=== PATIENT | female | born 1935 | race Caucasian/White ===

== ENCOUNTER 2017-04-22 13:29 | Emergency (ER) | payer MEDICARE, OTHER ==
[~2017-04-22] VITALS: Ht 154.3 cm; Wt 80.5 kg
[2017-04-22 14:00] VITALS: BP 157/86; PULSE 74; RESP 16; O2SAT 96
[2017-04-22 15:05] VITALS: BP 147/59; PULSE 70; RESP 23; O2SAT 100
--- NOTE | 2017-04-22 15:05 | ED.REPORT ---
HPI-General Illness Date of Service Apr 22, 2017 ED Provider: Dejan Whitlock MD Pt is an 81 year old female with a hx of sleep apnea, pulmonary nodules presenting to the ED complaining of 10/10 gradual onset sharp lower back pain onset 2 weeks ago. The pain radiates into her bilateral legs. She also complains of urinary retention, and weakness in her legs, although she states that these have been going on for a while. She has taken Tylenol with a little relief, brining the pain down to about a 7 or 8. Pt denies any hx of recent trauma or injury or hx of cancer. Denies any bowel or bladder incontinence, fever, chills, headache, vision changes, numbness, abdominal pain, nausea, vomiting, hematuria, SOB or wheezing. Nursing Notes Stated Complaint: BACK Chief Complaint: Back Pain or Injury Nursing Notes Reviewed: Yes Allergies: Coded Allergies: bupropion (Verified Allergy, Severe, kidney scarring, 04/22/17) sulfasalazine (Verified Allergy, Severe, 04/22/17) Uncoded Allergies: BANDAIDS (Allergy, Unknown, ITCHY, 02/13/07) General Time Seen by MD: 15:05 Chief Complaint Back pain Hx Obtained From: Patient Arrived By: Walk-in Sudden in Onset?: No Onset Occurred: More than a week ago... (2 weeks) Symptom Duration: Since onset Location: : Back Quality: Painful, Sharp Severity: Current: Pain level 10 out of 10 Severity: Maximum: Pain level 10 out of 10 Recent Healthcare: No recent doctor visit, No recent hospitalization Similar Sx Previous: No Past Medical History Past Medical History Reports Sleep apnea, pulmonary nodules Past Surgical History denies Smoking History Unknown if Ever Smoker Social History Drug Use: Denies drug use Ambulatory Status Independent Review of Systems Full Review of Systems Constitutional: Denies: Chills, Fever Eyes: Denies: Blurred bilateral, Diplopia, Visual loss bilateral Ears / Nose / Throat: Denies: Throat swelling Respiratory: Denies: Shortness of breath, Wheezing GI: Denies: Abdominal pain, Nausea, Vomiting Female: Denies: Hematuria, Incontinence Musculoskeletal: Reports: Back pain Endocrine: Denies: Polyuria Skin: Denies Itching, Denies Rash Neurologic: Denies: Focal weakness, Headache, Numbness Psychiatric: Denies: Depression Complete sys rev & neg: except as marked. Physical Exam Nursing note and vitals reviewed. Constitutional: Well-developed, well-nourished. Not diaphoretic. Head: Normocephalic and atraumatic. Mouth/Throat: Oropharynx is clear and moist. No oropharyngeal exudate. Eyes: EOM are normal. Pupils are equal, round, and reactive to light. Neck: Supple, no tracheal deviation. Cardiovascular: Normal rate, regular rhythm. Equal and intact distal pulses throughout. Pulmonary/Chest: Effort normal and breath sounds normal. No respiratory distress. Abdominal: Soft. No distension. There is no tenderness, rebound, or guarding. Bowel sounds present. Musculoskeletal: Range of motion grossly intact, moving all extremities. No edema or tenderness appreciated. Neurological: AOx3. Grossly nonfocal exam. Strength and sensation intact and equal to bilateral upper and lower extremities. Skin: Warm and dry, no rashes or pallor appreciated. Psychiatric: Appropriate mood and affect. Behavior appears normal. Back: Lumbar and paraspinal tenderness. No C or T tenderness. Vital Signs Vital Signs Date Time Temp Pulse Resp B/P Pulse Ox O2 Delivery O2 Flow Rate FiO2 04/22/17 21:10 80 16 119/59 95 Room Air 04/22/17 20:09 72 16 148/72 100 Room Air 04/22/17 17:23 88 17 134/78 99 Room Air 04/22/17 15:05 36.5 70 23 147/59 100 Room Air 04/22/17 14:00 36.6 74 16 157/86 96 Initial VS: Reviewed Interpretation & Diagnostics MRI LUMBAR SPINE NO CONTRAST: IMPRESSION: 1. Study is degraded by artifact however there is grossly stable severe L4-5 central spinal canal narrowing caused by degenerative change and L4-5 anterolisthesis with associated posterior bulging of the intervertebral body disc. 2. Remaining central spinal canal and all visualized neural foramina are patent. 3. Findings discussed by telephone with Dr. Whitlock [phone]) at 19:20 on 04/22. Dictated by: Geovani Rosa M.D. on 04/22/2017 at 19:07 Lab Results Interpretation Result Diagram: 04/22/17 1720 04/22/17 1720 Test 04/22/17 16:31 04/22/17 17:20 04/22/17 18:19 Urine Color Straw (YELLOW) Urine Appearance Clear (CLEAR,HAZY) Urine pH 5.0 (5.0-8.0) Urine Specific Hartman 1.015 (1.003-1.035) Urine Protein Negativemg/dL (NEG,TRACE) Urine Glucose (UA) Negativemg/dL (NEGATIVE) Urine Ketones Negativemg/dL (NEGATIVE) Urine Occult Blood Negative (NEGATIVE) Urine Nitrite Negative (NEGATIVE) Urine Bilirubin Negative (NEGATIVE) Urine Urobilinogen Normalmg/dL (NORMAL) Urine Leukocyte Esterase Negative (NEGATIVE) Urine RBC 0-2/hpf (0-2) Urine WBC 0-5/hpf (0-5) Urine Epithelial Cells None/hpf (NONE-MOD) Urine Crystals None seen (NONE SEEN) Urine Bacteria Few/hpf (NONE-FEW) Urine Hyaline Casts None/lpf (NONE) Urine Granular Casts None seen (NONE SEEN) Urine Waxy Casts None seen (NONE SEEN) Urine Red Blood Cell Casts None seen (NONE SEEN) Urine White Blood Cell Casts None seen (NONE SEEN) Urine Mucus None seen (None Seen) Urine Trichomonas None seen (NONE SEEN) Urine Yeast None (NONE SEEN) Urinalysis Comment None Urine Culture Reflexed Not indicated White Blood Count 6.8th/mm3 (3.8-10.1) Red Blood Count 4.83mil/mm3 (3.90-5.20) Hemoglobin 14.6g/dL (12.0-15.6) Hematocrit 44.2% (35.0-46.0) Mean Corpuscular Volume 91.5fL (81-100) Mean Corpuscular Hemoglobin 30.2pg (27.0-35.0) Mean Corpuscular Hemoglobin Concent 33.0% (32.0-37.0) Red Cell Distribution Width 14.2% (12.3-15.4) Platelet Count 157bil/L (150-400) Neutrophils (%) (Auto) 62.6% (40-74) Lymphocytes (%) (Auto) 23.0% (14-46) Monocytes (%) (Auto) 10.1% (4-12) Eosinophils (%) (Auto) 4.1% (0-5) Basophils (%) (Auto) 0.1% (0-3) Prothrombin Time 11.0sec (8.1-12.5) Prothromb Time International Ratio 1.03ratio Sodium Level 139mEq/L (134-144) Potassium Level 4.3mEq/L (3.5-5.2) Chloride Level 104mEq/L (97-108) Carbon Dioxide Level 21mmol/L (18-29) Blood Urea Nitrogen 24mg/dL (8-27) Creatinine 1.47mg/dL (0.57-1.00) Estimat Glomerular Filtration Rate 49mL/min (>59) Glucose Level 94mg/dL (60-99) Lactic Acid Level 0.7mmol/L (0.4-2.0) Calcium Level 9.4mg/dL (8.5-10.1) Magnesium Level 2.2mg/dL (1.6-2.6) Total Bilirubin 0.4mg/dL (0.0-1.2) Aspartate Amino Transf (AST/SGOT) 29U/L (0-50) Alanine Aminotransferase (ALT/SGPT) 19U/L (0-32) Alkaline Phosphatase 101U/L (25-165) Total Protein 7.2g/dL (6.4-8.4) Albumin 3.9g/dL (3.4-5.0) Lipase 11U/L (13-60) Hold Urine Received (Received) ECG Interpretation Time: 15:52 Interpreted by: ED physician Normal ECG Interpretation: Normal ECG w/ rate of..., Normal rate (72), Normal sinus rhythm Re-Eval/Medical Decision Med Decision/Clinical Course In summary, 81-year-old female presenting to the ED for evaluation of back pain , now associated with urinary retention. DDx broad and includes lumbosacral strain, degenerative disc disease, cauda equina syndrome, epidural abscess, AAA , nephrolithiasis. No bowel/bladder incontinence but she does have urinary retention with a post void residual of greater than 250 mL. Otherwise unremarkable exam with equal strength to bilateral lower extremities and grossly intact sensation to light touch. Afebrile, non-toxic appearing, no history of IV drug abuse. Patient denies abdominal pain and has a benign abdominal exam. No CVA tenderness or hematuria. MRI shows significant spinal stenosis but no evidence of a compressive syndrome/cauda equina. Laboratory studies here in the ED reviewed, notable for a CBC grossly within normal limits , CMP with a creatinine of 1.47. Urinalysis is not consistent with infection. Discussed the need for close outpatient follow-up with the patient. Given above , reasonable to discharge home w/ PCP f/u as soon as able to further discuss strategies to minimize pain and discomfort. Very careful return precautions were discussed, including to return immediately if any bowel or bladder incontinence, urinary retention, fever, or weakness. Patient agreeable to the plan as stated, no further questions. Time of Eval: 20:39 Patient Status: Condition improved Re-Evaluation/Progress Note: Informed of MRI results. Discussed plan for discharge. Pt understands and agrees with plan. Counseled Regarding: Diagnosis, Lab results, Need for follow-up, When/why to return to ED Discharge & Departure Primary Impression: Spinal stenosis Spinal region: lumbar Qualified Code: M48.06 - Spinal stenosis, lumbar region Additional Impression: Low back pain Chronicity: acute Back pain laterality: unspecified Sciatica presence: unspecified whether sciatica present Qualified Code: M54.5 - Low back pain Disposition: Home Discharge Condition All VS Reviewed: Yes Condition: Improved Patient Instructions: Acute Low Back Pain (ED), Low Back Strain (ED), Lumbar Spinal Stenosis (ED) Additional Instructions: Thank you for allowing us to be a part of your care in the ED today. Your emergency department results, including an MRI scan, show spinal stenosis. I do not think that there is an emergent cause for your symptoms today that would require admission to the hospital. Please schedule a follow up appointment with your primary care physician tomorrow for a recheck. Please return to the emergency department for any new or worsening symptoms including any nausea, vomiting, bladder or bowel incontinence, abdominal pain, shortness of breath, chest pain, one sided weakness/numbness, fevers, or chills , or if there's anything else of concern to you. Referrals: Cedric Mc MD (PCP) [place] Attestation Portions of this note were transcribed by Christal Rodgers. I, Dr. Whitlock personally performed the history, physical exam and medical decision-making; I reviewed and confirmed the accuracy of the information in the transcribed note. Signed by: Latisha Joel, 04/22/2017. copies to: Cedric Mc MD, William B MD Apr 22, 2017 15:05 CHRISTAL RODGERS Apr 22, 2017 16:53
[2017-04-22] MEDS ORDERED: Ondansetron 2 mg/mL 2 mL Inj IVPUSH PRN (15:15)
[2017-04-22 16:44] LABS: APPEARANCE,URINE CLEAR (CLEAR,HAZY); COLOR,URINE STRAW (YELLOW); OCCULT BLOOD,URINE NEGATIVE (NEGATIVE); UROBILINOGEN,URINE NORMAL (NORMAL)
[2017-04-22] MEDS ORDERED: HYDROcodone-APAP 5-325 mg Tablet PO ONE (17:05)
[2017-04-22] MEDS ORDERED: LORazepam 0.5 mg Tablet PO ONE (17:05)
[2017-04-22 17:23] VITALS: BP 134/78; PULSE 88; RESP 17; O2SAT 99
[2017-04-22 17:32] LABS: BASOPHILS % (AUTO) 0.1 % (0-3); EOSINOPHILS % (AUTO) 4.1 % (0-5); MONOCYTES % (AUTO) 10.1 % (4-12); Mean Corpuscular Hemoglobin 30.2 pg (27.0-35.0); Mean Corpuscular Volume 91.5 fL (81-100); NEUTROPHILS % (AUTO) 62.6 % (40-74); Platelet Count 157 bil/L (150-400)
[2017-04-22 17:48] LABS: INR 1.03 ratio
[2017-04-22 17:54] LABS: Magnesium 2.2 mg/dL (1.6-2.6)
--- NOTE | 2017-04-22 19:24 | DRSVH ---
PROCEDURE: MRI LUMBAR SPINE WITHOUT CONTRAST ([id number]) INDICATIONS: low back pain, urinary retention TECHNIQUE: Noncontrast sagittal T1 spin echo and T2 fast echo, sagittal STIR, axial T1 and T2 fast spin echo thr ough the lumbar spine. In cases with scoliosis, additional coronal T2 fast spin echo may be performe d. COMPARISON: MRI from 03/23/2012. FINDINGS: Image quality: Degraded by artifact particularly at L4-5. Alignment and Curvature: Stable grade 1 anterolisthesis of L4-5 measuring 8 mm. Otherwise there is normal bony alignment. Bone Marrow: Marrow is of normal overall signal. No acute vertebral body compression fractures. Be nign L2, L3 and L4 vertebral body hemangiomas. Spinal Cord: Conus medullaris terminates at the L1 level. Visualized cord demonstrates normal signa l and size. Paraspinous Soft Tissues: No paravertebral masses. L1-L2: Minimal broad-based posterior disc bulge. Facet joint hypertrophy. Central spinal canal and neural foramina are patent. L2-L3: Minimal broad-based posterior disc bulge. Facet joint hypertrophy. Central spinal canal and neural foramina are patent. L3-L4: Minimal broad-based posterior disc bulge. Facet joint hypertrophy. Central spinal canal and neural foramina are patent. L4-L5: Stable anterolisthesis measuring 8 mm with posterior bulge and unroofing of the intervertebra l body disc. Facet joint and ligamentum flavum hypertrophy. Motion artifact obscures detail at this level. However there is severe central spinal canal stenosis with the residual AP diameter of appro ximately 7 mm or less unchanged given differences in technique since 2011. The neural foramina are p atent and unchanged since 2011 L5-S1: Normal appearance. Neuroforamina are patent and unchanged since 2011. IMPRESSION: 1. Study is degraded by artifact however there is grossly stable severe L4-5 central spinal canal vernon rowing caused by degenerative change and L4-5 anterolisthesis with associated posterior bulging of th e intervertebral body disc. 2. Remaining central spinal canal and all visualized neural foramina are patent. 3. Findings discussed by telephone with Dr. Whitlock ([phone]) at 19:20 on 04/22/2017. Dictated by: Geovani Roas M.D. on 04/22/2017 at 19:07 Approved by: Geovani Rosa M.D. on 04/22/2017 at 19:22
[2017-04-22 20:09] VITALS: BP 148/72; PULSE 72; RESP 16; O2SAT 100
[2017-04-22 21:10] VITALS: BP 119/59; PULSE 80; RESP 16; O2SAT 95
== END 2017-04-22 21:13 | disposition home or self-care (01) ==
LOC: SED 13:29
DX: M48.06 Spinal stenosis, lumbar region (principal); M54.5 Low back pain

== ENCOUNTER 2017-04-29 18:36 | Emergency (ER) | payer MEDICARE, OTHER ==
[~2017-04-29] VITALS: Ht 160 cm; Wt 77.3 kg
[2017-04-29 18:43] VITALS: BP 145/75; PULSE 79; RESP 16; O2SAT 93
--- NOTE | 2017-04-29 19:22 | ED.REPORT ---
HPI-Back Pain 40 and Over Date of Service Apr 29, 2017 ED Provider: Brayan Dick PA-C 81-year-old female with a history of sleep apnea, pulmonary nodules presents to the emergency department with a chief complaint of back pain. Patient complains of lower back pain worsening over the last month. Beginning 2 weeks ago she noted radiating pain down her left leg primarily with some radiating pain in her right leg. She admits to bilateral leg weakness and recent months, predating her back pain. Patient was seen in this department one week ago, when MRI revealed spinal stenosis but no cord compression. She saw her primary care provider last Tuesday, and has appointment to be seen in 3 days for steroid injections in her back. She presents to the emergency department tonight because she no longer finds the pain bearable. She took 2 Vicodin prior to arrival, which she has been prescribed by Dr. Mckay. She also reports some dysuria. Denies numbness, tingling, in lower extremity. Denies fever, DM, HIV, organ transplant, immunosuppression, recent surgery, recent infection, history of back surgery, surgical implants and IV drug use. Denies bowel/bladder dysfunction and saddle anesthesia. Denies history of cancer, trauma. She reports an allergy to ibuprofen. Nursing Notes Stated Complaint: BACK PAIN/TRAVELS DOWN LEGS Chief Complaint: Back Pain or Injury Nursing Notes Reviewed: Yes Allergies: Coded Allergies: bupropion (Verified Allergy, Severe, kidney scarring, 04/29/17) sulfasalazine (Verified Allergy, Severe, 04/29/17) Uncoded Allergies: BANDAIDS (Allergy, Unknown, ITCHY, 02/13/07) Scheduled Prednisone (PredniSONE) 20 Mg Tablet 40 MG PO DAILY General Time Seen by MD: 18:47 Chief Complaint Lumbar pain Sudden in Onset?: No Past Medical History Past Medical History Reports Sleep apnea, pulmonary nodules Past Surgical History denies Smoking History Unknown if Ever Smoker Social History Drug Use: Denies drug use Ambulatory Status Independent Review of Systems Review of Systems Note: Negative unless stated otherwise in history of present illness Physical Exam General: Well appearing, well developed, well nourished, moderate distress. Head: Atraumatic, normocephalic. Eyes: No scleral icterus or injection. No discharge. Vision grossly intact. ENT: Voice clear, hearing grossly intact. Respiratory: Regular rate and rhythm. Breath sounds present, clear to auscultation and equal bilaterally. No respiratory distress. No increased work of breathing, speaks in complete sentences. Cardiovascular: Regular rate and rhythm, without murmur, gallop or rub. Gastrointestinal: Abdomen flat and non-tender without guarding or rebound. Bowel sounds normoactive. Skin: Warm and dry. Neurological: Normal gait. Hip flexion, knee extension, ankle dorsiflexion and plantarflexion strength 5/5 B/L. Patellar and Achilles reflexes present and equal B/L. Sensation to light touch intact at medial leg, dorsal foot and lateral foot B/L. negative straight leg raise, negative cross straight leg raise. Psychological: Alert and oriented. Speech appropriate, linear and logical. Behavior appropriate. Initial Vital Signs Vital Signs (First) Date Time Temp Pulse Resp B/P Pulse Ox O2 Delivery O2 Flow Rate FiO2 04/29/17 18:43 37.2 79 16 145/75 93 Room Air Elevated blood pressure Re-Eval/Medical Decision Med Decision/Clinical Course 81-year-old female with a one-month history of worsening back pain associated with left leg shooting pains. Denied red flag history. Evaluated in this department one week ago and diagnosed with spinal stenosis on MRI. Seen by primary care 5 days ago, with plans to be seen again on Tuesday to discuss steroid injection. Patient reports no injuries since this previous evaluation. She states pain has become intolerable. She does admit some dysuria which he states is at baseline for her and was present at previous urinalysis which was negative. Patient is initially quite uncomfortable but responded well to 4 mg of morphine. Tolerates physical examination, which is positive for diffuse lumbar tenderness. Left leg edema which patient states is at baseline for several months. Previously assessed for DVT and negative per patient. Normal neurological examination, nontender abdomen. Vitals show a mild elevated blood pressure. I discussed the case with Dr. Hays, who recommends pulse of oral steroids, scheduled use of previously prescribed Vicodin. Back pain is without red flag signs or symptoms for acute disc herniation, cauda equina, infection, hematoma, trauma, pyelonephritis, nephrolithiasis, AAA , cancer. I believe this is musculoskeletal back pain, stable and safe for discharge to home. She feels her pain is controlled sufficiently for discharge and ambulates well. Advised regarding use of previously prescribed Vicodin, with precautions. Advise primary care follow-up next week as planned and provided strict emergency return precautions. Patient verbalizes understanding of and consent to the plan. Re-Evaluation/Progress : Time of Eval: 20:16 Re-Evaluation/Progress Note: Patient feels significantly improved after administration of 4 mg of morphine IM. She tolerates physical examination well. She declines further pain medication. Discharge & Departure Impression: Primary Impression: Low back pain Chronicity: acute Back pain laterality: bilateral Sciatica presence: without sciatica Qualified Code: M54.5 - Low back pain Disposition: Home Discharge Condition All VS Reviewed: Yes Condition: Stable Patient Instructions: Acute Low Back Pain (ED) Additional Instructions: Evaluation in the emergency department for lower back pain. History and physical are reassuring for emergent neurological. History does not suggest that this is likely to be a spinal fracture. Your neurological examination is normal, indicating there is no damage to the nerves in your back. MRI performed last week was reassuring. I see no indication to perform additional imaging tests at this time. I believe this is musculoskeletal back pain and treatment is largely symptomatic. Rest is important, especially for the next couple of days, but avoid total bed rest. Reasonable activity as tolerated is the best. Treatment given a dose of oral steroids here in the emergency department. I will write you a prescription for 4 more doses to be taken daily starting tomorrow. You can take the Vicodin you were provided by Dr. Mc. Take 1-2 tabs every 6 hours. Do not drink alcohol or operate a vehicle within 4 hours of taking this medication, and be aware of the increased risk of falls associated with this medication. Follow-up with your primary care provider next week as planned. Return the emergency department for new or worsening symptoms such as loss of bowel/ bladder control, numbness between your legs, new weakness/numbness or high fever. Referrals: Cedric Mc MD (PCP) EDSupervising Provider for APC: Ailyn Humphries MD copies to: Cedric Mc MD, Seth PA-C Apr 29, 2017 19:22
[2017-04-29] MEDS ORDERED: predniSONE 20 mg Tablet PO ONE (20:00)
[2017-04-29] MEDS ORDERED: PRE20 PO (20:46)
[2017-04-29 21:01] VITALS: BP 127/60; PULSE 72; RESP 18; O2SAT 95
== END 2017-04-29 20:58 | disposition home or self-care (01) ==
LOC: SED 18:36
DX: M54.5 Low back pain (principal); Z88.8 Allergy status to other drugs, medicaments and biological substances
CPT/HCPCS: 96372; 99283; J2270

== ENCOUNTER 2017-05-12 06:37 | Emergency (ER) | payer MEDICARE, OTHER ==
[~2017-05-12] VITALS: Ht 152.4 cm; Wt 77.3 kg
[~2017-05-12 06:37] MED LIST: PRE20 PO
[2017-05-12 06:45] VITALS: BP 144/78; PULSE 97; RESP 20; O2SAT 95
--- NOTE | 2017-05-12 07:15 | ED.REPORT ---
HPI-Syncope Date of Service May 12, 2017 ED Provider: Dorothy Kimball MD Patient is an 81 year old female with a hx of spinal stenosis who presents to the ED s/p hitting her head on the tank of her toilet at 0500 this morning. She reports feeling dizzy prior to her fall. Per , pt's spinal stenosis causes her trouble walking so she may have stumbled. Associated symptoms include a frontal headache and mild neck pain. She denies LOC, rhinorrhea, nausea, vomiting, new extremity pain, or any other symptoms. Pt denies taking any blood thinners. Nursing Notes Stated Complaint: GLF Chief Complaint: Head, Face, Neck Trauma Nursing Notes Reviewed: Yes Allergies: Coded Allergies: bupropion (Verified Allergy, Severe, kidney scarring, 05/12/17) sulfasalazine (Verified Allergy, Severe, 05/12/17) Uncoded Allergies: BANDAIDS (Allergy, Unknown, ITCHY, 02/13/07) Scheduled Prednisone (PredniSONE) 20 Mg Tablet 40 MG PO DAILY Scheduled PRN Hydrocodone-Acetaminophen 5-325 mg (Hydrocodone-Acetaminophen 5-325 mg) 1 Each Tablet 1 TABLET PO Q4H PRN PRN For Pain General Time Seen by Provider: 07:17 Chief Complaint Other (Fall ) Hx Obtained From: Patient, Spouse Arrived By: Walk-in Onset Occurred: 1 - 4 hours ago Location: : Head Quality: Painful Immunizations: Unknown Recent Healthcare: Recent doctor visit Past Medical History Past Medical History Reports Sleep apnea, pulmonary nodules HTN Spinal stenosis Hypothyroid Colitis Hiatal hernia Arthritis Depression Past Surgical History Back tumor removed Lung biopsy Smoking History Unknown if Ever Smoker Social History Alcohol Use: "Social" Drug Use: Denies drug use Ambulatory Status Independent Review of Systems GI: Denies: Nausea, Vomiting Musculoskeletal: Reports: Neck pain, Denies: Extremity pain (no new pain ) Neurologic: Reports: Dizziness, Headache, Denies: Change LOC Complete sys rev & neg: except as marked. Additional Review of Systems Allergy / Immune: Denies: Rhinorrhea Physical Exam Initial Vital Signs Vital Signs (First) Date Time Temp Pulse Resp B/P Pulse Ox O2 Delivery O2 Flow Rate FiO2 05/12/17 06:45 37.4 97 20 144/78 95 Room Air Initial VS: Reviewed, Vital signs normal General/Constitutional: Awake, Alert Respiratory / Chest: Atraumatic, Breath sounds NL, Breath sounds = bilat, No respiratory distress Cardiovascular: Heart rate NL, Regular rhythm, Heart sounds NL Lower Ext Edema: Positive: Bilateral 2+ Lower Extremity / Pelvis / MS: No deformity Movement at base-line Pre-tibial redness to the LLE Neurologic: Oriented X3, Speech NL Head / Eyes: PERRL 2 cm hematoma above the L eye. Bruising to the medial aspect of the R eye and around the L eye into the L superior lid margin No subconjunctival hemorrhage ENT: Nose exam NL No septal hematoma No Hemotypanum No rhinorrhea Bruising to the bridge of the nose with tenderness Neck: Atraumatic General cervical discomfort Abdomen: Atraumatic, Soft, Non-tender Upper Extremity / MS: No deformity Interpretation & Diagnostics Lab Results Interpretation Lab Results Interpretation: CT C-SPINE: IMPRESSION: No acute fracture or malalignment. Diffuse cervical spine disc degeneration and facet disease. Minimal grade 1 anterolisthesis of C7 on T1. Straightening of the normal cervical lordosis Dictated by: Keon Gill M.D. on 05/12/2017 at 8:09 Approved by: Keon Gill M.D. on 05/12/2017 at 8:15 ECG Interpretation ECG Interpretation: sinus rate 81 normal interval and axis early R wave progression no acute ST,T changes similar to 04/2017 Time: 07:02 Interpreted by: ED physician CT Head Interpretation IMPRESSION: Left frontal scalp hematoma, and left periorbital soft tissue swelling. No acute intracranial abnormality. Dictated by: Keon Gill M.D. on 05/12/2017 at 8:06 Approved by: Keon Gill M.D. on 05/12/2017 at 8:09 Study: Head CT no contrast Interpretation / Wet Read by: Interpret - Radiologist Re-Eval/Medical Decision Med Decision/Clinical Course The patient fell this morning, she is unsteady due to her spinal stenosis and she has not been using a walker. They state they can get hold walker. The patient has follow-up with a specialist. The patient is certain she did not get dizzy or pass out, she states that it was her feet, this has happened to her before. The patient hit her head and nose she does have some ecchymosis around the left eye and a very small amount to the lid margin. She does not have any symptoms concerning for a basilar skull fracture, she does not have any rhinorrhea, raccoon eyes, cortes sign, or hemotympanum. I think the ecchymosis is from the bump she sustained on her head predominantly. During her course here she developed increased ecchymosis around the left eye. The patient has pain to her nasal bridge but it is not deformed and there is no septal hematoma. The patient had a CT of her brain and C-spine given her generalized pain and there are no acute abnormalities. Re-Evaluation/Progress : Time of Eval: 08:38 )( Re-Eval Neurologic Exam: Alert Re-Evaluation/Progress Note: Rechecked pt. Discussed CT results and plan for discharge with f/u. Patient understands and agrees with plan. All questions addressed at this time. Counseled Regarding: Diagnosis, Lab results, Need for follow-up, When/why to return to ED Discharge & Departure Impression: Primary Impression: Neck strain Encounter type: initial encounter Qualified Code: S16.1XXA - Strain of muscle, fascia and tendon at neck level, initial encounter Additional Impressions: Facial contusion Encounter type: initial encounter Qualified Code: S00.83XA - Contusion of other part of head, initial encounter Contusion, nose Disposition: Home Discharge Condition All VS Reviewed: Yes Condition: Stable Patient Instructions: Facial Contusion (ED), Neck Strain Exercises (GEN) Additional Instructions: Thank you for entrusting us with your care. Your CT scans, examination, and EKG are reassuring. We did not find a dangerous cause for your fall at this time. Your CT did not show a head bleed or neck fracture. Use a walker regularly to prevent future falls. Follow up with your primary doctor within the next 1-2 days for re-evaluation. Keep the appointment with the specialist. Return to the emergency department if you experience worsening headache, vision changes, numbness, weakness, or tingling, or any other new or concerning symptoms. Referrals: Cedric Mc MD (PCP) [facility] Attestation Portions of this note were transcribed by Brock Farrell. I, Dr. Kimball personally performed the history, physical exam and medical decision-making; I reviewed and confirmed the accuracy of the information in the transcribed note. Signed by: Latisha Nath, 05/12/17 copies to: Cedric Mc MD, Jena M MD May 12, 2017 07:15 BROCK FARRELL May 12, 2017 07:24
--- NOTE | 2017-05-12 08:10 | DRSVH ---
PROCEDURE: CT BRAIN WITHOUT CONTRAST ([id number]) INDICATIONS: fall TECHNIQUE: Noncontrast 4.5 mm thick angled axial sections acquired from the foramen magnum to the vertex, with c oronal reformats. COMPARISON: None. FINDINGS: Image quality: Excellent. CSF spaces: Basal cisterns are patent. No extra-axial fluid collections. The ventricles are symmet stephen in size and shape. Brain: No intracranial bleeds or masses. There is cerebral volume loss for age, with resultant vent ricular and sulcal prominence. There are periventricular and deep white matter chronic small vessel ischemic changes. There is intracranial internal carotid artery atherosclerosis. Skull and face: Left frontal scalp hematoma and left periorbital soft tissue swelling. Calvarium and visualized facial bones appear intact, without suspicious lesions. Sinuses: Visualized sinuses and mastoids are clear. IMPRESSION: Left frontal scalp hematoma, and left periorbital soft tissue swelling. No acute intracranial abnormality. Dictated by: Keon Gill M.D. on 05/12/2017 at 8:06 Approved by: Keon Gill M.D. on 05/12/2017 at 8:09
--- NOTE | 2017-05-12 08:16 | DRSVH ---
PROCEDURE: CT CERVICAL SPINE WITHOUT CONTRAST ([id number]) INDICATIONS: fall TECHNIQUE: Noncontrast 3 mm thick sections acquired from the skull base to the T4 level. Sagittal and coronal r eformats were then constructed. For radiation dose reduction, the following was used: automated exp osure control, adjustment of mA and/or kV according to patient size. COMPARISON: None. FINDINGS: Image quality: Excellent. Bones: No fractures or dislocations. Visualized superior ribs are intact. There is diffuse osteopen ia and endplate spurring/sclerosis. There is moderate disc space narrowing throughout the entire cerv ical spine. There is multilevel facet arthropathy. Straightening of the normal cervical lordosis. Min imal grade 1 anterolisthesis of C7 on T1. Soft tissues: Prevertebral soft tissues are normal in thickness. No paravertebral hematomas. No ap ical pneumothoraces. 5 mm ground glass subpleural nodular opacity in the posterior right upper lobe m ost likely postinflammatory image 59 series 3. IMPRESSION: No acute fracture or malalignment. Diffuse cervical spine disc degeneration and facet disease. Minimal grade 1 anterolisthesis of C7 on T1. Straightening of the normal cervical lordosis Dictated by: Keon Gill M.D. on 05/12/2017 at 8:09 Approved by: Keon Gill M.D. on 05/12/2017 at 8:15
[2017-05-12] MEDS ORDERED: HYDR-4003 PO (08:48)
== END 2017-05-12 08:55 | disposition home or self-care (01) ==
LOC: SED 06:37
DX: S16.1XXA Strain of muscle, fascia and tendon at neck level, initial encounter (principal); S00.83XA Contusion of other part of head, initial encounter; S00.33XA Contusion of nose, initial encounter; W18.39XA Other fall on same level, initial encounter; Y93.01 Activity, walking, marching and hiking; Y92.002 Bathroom of unspecified non-institutional (private) residence as the place of occurrence of the external cause; Y99.8 Other external cause status; I10 Essential (primary) hypertension; E03.9 Hypothyroidism, unspecified; F32.9 Major depressive disorder, single episode, unspecified; Z88.8 Allergy status to other drugs, medicaments and biological substances